=== PATIENT | male | born 1980 | race Two or more races ===

== ENCOUNTER 2024-09-02 07:49 | Day surgery (SDC) | payer BC ==
[2024-09-02] MEDS: Lactated Ringers 1,000 ML IV SCH (08:35)
[2024-09-02] MEDS ORDERED: Midazolam 1 MG/ML 2 ML SDV ONE (09:47)
[2024-09-02] MEDS ORDERED: fentaNYL 100 MCG/2 ML SDV ONE (09:47)
[2024-09-02] MEDS ORDERED: Propofol 200 MG/20 ML SDV ONE (09:47)
== END 2024-09-02 12:10 | disposition home or self-care (01) ==
LOC: JP.SDS 07:49
PROVIDERS: ATTEND Surgery
DX: Z12.11 Encounter for screening for malignant neoplasm of colon (principal)
CPT/HCPCS: 00812-QZ; J2250; J2704; J3010; J7120